=== PATIENT | male | born 1985 | race Caucasian/White ===

== ENCOUNTER 2024-03-25 20:07 | Emergency (ER) | payer OTHER, SELFPAY ==
[2024-03-25 20:10] VITALS: BP 131/89
[2024-03-25] MEDS: NSS 1000 IV (21:45)
[2024-03-25] MEDS: ZOFRAN 4 MG IV (21:45)
--- NOTE | 2024-03-25 22:32 | ED.GENMED ---
History of Present Illness
General
Chief Complaint: Abdominal Symptoms
Source: patient
Time Seen by Provider: 03/25/24 21:24
Travel History
Have you had any contact with someone who has COVID-19?: No
Do you have any symptoms of coronavirus? Fever > 100 degrees, chills, cough, shortness of breath, sore throat, loss of taste or smell, muscle aches, or headache?: No
History of Present Illness
History of Present Illness:
38 y/o male with no significant past medical history presenting to the ED for evaluation after testing positive for COVID this past Wednesday, today started with continuous nausea and vomiting prompting him to come to ED tonight. Denies any fevers,
chills, rigors, urinary symptoms or bowel changes. No meds [employer]. No other concerns at this time.
Past History
Past History
ED Past Medical History: None; Negative IDDM
ED Past Surgical History: None; Negative Cardiac
Social History
Tobacco: Non-smoker
Alcohol: None
Drug: None
Personal: Single
Living: alone
Employment: Employed
Family History
Family History: Other (Noncontributory)
Review of Systems
Review of Systems
All Other Systems: ROS reviewed and negative except as documented in HPI and ROS
Phy Exam
Physical Exam
Physical Exam:
GENERAL: Alert , appears uncomfortable. pale
EYE: conjunctiva clear
NECK: Supple
ENT: o/p clr, mmm.
CARDIAC: Regular rate and rhythm
LUNGS: Clear breath sounds bilaterally, no acute respiratory distress, no wheezes/rales/rhonchi
NEUROLOGICAL: Alert and oriented
SKIN: Warm and dry, skin intact.
MUSCULOSKELETAL: well perfused.
PSYCH: Normal and appropriate interaction.
Scores
Heart Failure Risk
Heart Failure Risk Score: Not Applicable
Heart Score for Chest Pain Patients
STEMI patient?: Not applicable
Withdrawal Assessment of Alcohol
Withdrawal Assessment Completed?: Not applicable
Course
Orders/Labs/Results
Orders:
Orders
03/25/24 21:25
0.9% Sodium Chloride 1000 ml [Nss] 1,000 ml IV BOLUS
Ondansetron Injectable [Zofran] 4 mg IV NOW STA
03/25/24 21:25
03/25/24 21:25
Vital Signs
Initial and Last Documented VS:
Initial Vital Signs
Temp Pulse Resp BP Pulse Ox
97.7 F 79 18 131/89 99
03/25/24 20:10 03/25/24 20:10 03/25/24 20:10 03/25/24 20:10 03/25/24 20:10
Last Documented Vital Signs
Temp Pulse Resp BP Pulse Ox
97.7 F 79 18 131/89 99
03/25/24 20:10 03/25/24 20:10 03/25/24 20:10 03/25/24 20:10 03/25/24 20:10
MDM/Problems Addressed
MDM/Problems Addressed:
38-year-old male presenting emergency department with known COVID infection now with 1 day of nausea and vomiting. Hemodynamically stable but given persistent nature of symptoms will treat with fluids and Zofran. Anticipate discharge following.
*Pulse Oximetry
Patient hypoxic: no
*Critical Care Note
Total Time (30-74mins, 75-104mins- exclusive of procedures): Not Applicable
Patient Management
Escalation/DeEscalation of care consider admission/obs:
Patient feeling better. Rx for zofran sent to pharmacy. Stable for d/c home
ED Attending Note
-
Portions of this chart may have been created with voice recognition software.� Occasional wrong word or��sound alike� substitutions may have occurred due to the inherent limitations of voice recognition software.
Discharge Plan
Departure
Patient Disposition: Home (Routine Discharge)
Date of Disposition: 03/25/24
Time of Disposition: 22:36
Patient with high blood pressure during this ER visit?: No
Discharge Problem:
COVID-19, Nausea and vomiting
Instructions: Nausea and Vomiting, Adult (DC)
Prescriptions:
New
ondansetron 4 mg tablet,disintegrating
4 mg PO TIDPRN PRN (Reason: nausea/vomiting) Qty: 12 0RF
No Action
ibuprofen 600 MG tablet
600 mg PO Q6H PRN (Reason: pain)
Referrals:
UNKNOWN - PT DOES,NOT KNOW [Family Provider] -
Interventions
Interventions:
*Risk Screen - Suicide Last Done: 03/25/24 20:10
*General Assessment Last Done: 03/25/24 20:10
*Neglect/Abuse Screening Last Done: 03/25/24 20:10
ED- Fall Risk Assessment Last Done: 03/25/24 21:49
WX-Ftfoxr-Cvhytirybc Assessment Last Done: 03/25/24 21:49
Discharge Date and Time
Print Language: CZECH
[2024-03-25 22:48] VITALS: BP 137/86
== END 2024-03-25 22:54 | disposition home or self-care (01) ==
LOC: EMR 20:07
PROVIDERS: EMERGENCY PHYSICIAN Emergency Medicine
DX: R11.2 Nausea with vomiting, unspecified (principal); U07.1 COVID-19
CPT/HCPCS: 99284; 96374; 96361